=== PATIENT | female | born 1945 | race Caucasian/White ===

== ENCOUNTER 2024-05-25 08:12 | Inpatient (IN) | payer MEDICARE, OTHER ==
[2024-05-25] VITALS (8 sets, daily range): BP systolic 103–135; BP diastolic 50–89; TEMP 97.2–98.2; O2SAT 92–99
[~2024-05-25] VITALS: Ht 175.3 cm; Wt 108.1 kg
[2024-05-25] MEDS: ALBUTEROL FS 2.5 MG/3 ML VIAL.NEB CONTNEB ONE (08:59)
[2024-05-25] MEDS: IPRATROPIUM NEB FS 0.5 MG/2.5 ML AMPUL.NEB NEB ONE (08:59)
[2024-05-25] MEDS: IV NS 0.9% 1,000 ML BAG IV ONE (09:00)
[2024-05-25 09:04] LABS: BASOPHILS % (AUTO) 0.3 % (0.0-2.0); EOSINOPHILS # (AUTO) 0.1 K/uL (0.0-0.7); EOSINOPHILS % (AUTO) 0.7 % (0.0-6.0); HEMATOCRIT 34 % (33-45); HEMOGLOBIN 11.3 g/dL (11.5-14.8); LYMPHOCYTES # (AUTO) 0.9 K/uL (0.8-4.8); LYMPHOCYTES % (AUTO) 8.7 % (20.0-44.0); MEAN CORPUSCULAR HEMOGLOBIN 32 PG (26.0-33.0); MEAN CORPUSCULAR HGB CONC 34 g/dl (31.0-36.0); MEAN CORPUSCULAR VOLUME 94 fL (82-100); MONOCYTES # (AUTO) 0.5 K/uL (0.1-1.30); NEUTROPHILS # (AUTO) 8.6 K/uL (1.8-8.9); NEUTROPHILS % (AUTO) 85.3 % (43.0-81.0); PLATELET COUNT (AUTO) 196 K/uL (150-450); RED BLOOD CELL COUNT(AUTO) 3.59 MIL/uL (4.0-5.2); RED CELL DISTRIBUTION WIDTH 14.1 % (11.5-15.0); WHITE BLOOD COUNT (AUTO) 10.1 K/uL (4.3-11.0)
[2024-05-25] MEDS ORDERED: IPRATROPIUM NEB FS 0.5 MG/2.5 ML AMPUL.NEB ONE (09:04)
[2024-05-25] MEDS ORDERED: ALBUTEROL FS 2.5 MG/3 ML VIAL.NEB ONE (09:04)
[2024-05-25 09:08] LABS: CALCIUM, SERUM 9.3 mg/dL (8.5-10.1); POTASSIUM 4.8 mmol/L (3.5-5.1)
[2024-05-25 09:14] LABS: ALBUMIN 3.2 g/dL (3.4-5.0); BILIRUBIN,DIRECT 0.1 mg/dL (0.0-0.2); BILIRUBIN,TOTAL 0.5 mg/dL (0.2-1.0)
[2024-05-25 09:17] LABS: LACTIC ACID 1.1 mmol/L (0.4-2.0)
[2024-05-25 09:21] LABS: INR 1.01 (0.91-1.10); PARTIAL THROMBOPLASTIN TIME 25.4 SEC (24.3-34.3); PROTHROMBIN TIME 10.7 SECS (9.2-11.1)
[2024-05-25] MEDS: CEFEPIME 1 GM in IV D5W 50 ML IV ONE (09:25)
[2024-05-25 09:34] LABS: ABG BASE EXCESS -1.8 mmol/L (-2.0-3.0); ABG OXYGEN SATURATION 95.2 % (94.0-98.0); ABG PCO2 47.8 mmHg (32.0-45.0); ABG PH 7.327 (7.350-7.450); ABG PO2 86.6 mmHg (83.0-108.0); COHb 0.3 % (0.5-1.5); MetHb 0.3 % (0.0-1.5); O2Hb 94.6 % (94.0-97.0); SITE, ABG LEFT RADIAL
[2024-05-25] MEDS ORDERED: ASCO500T10 PO (10:15)
[2024-05-25] MEDS ORDERED: ZINC220C6 PO (10:15)
[2024-05-25] MEDS ORDERED: LORA10TA68 PO (10:15)
[2024-05-25] MEDS ORDERED: EYEL1KIT TP (10:15)
[2024-05-25] MEDS ORDERED: TOBR5DRO13 EACHEYE (10:15)
[2024-05-25] MEDS ORDERED: AMIN30LI2 PO (10:15)
[2024-05-25] MEDS ORDERED: DIAZ5TAB4 PO (10:15)
[2024-05-25] MEDS ORDERED: PIOG30TA10 PO (10:15)
[2024-05-25] MEDS ORDERED: TIOT18CA3 IH (10:15)
[2024-05-25] MEDS ORDERED: SITA50TA PO (10:15)
[2024-05-25] MEDS ORDERED: MULT-213 PO (10:15)
[2024-05-25] MEDS ORDERED: LEVE500T20 PO (10:15)
[2024-05-25] MEDS: VANCOMYCIN 1 GM in IV D5W 250 ML IV ONE (10:15)
[2024-05-25] MEDS ORDERED: ASPI-1420 PO (10:15)
[2024-05-25] MEDS ORDERED: MELA3TAB41 PO (10:15)
[2024-05-25] MEDS ORDERED: IPRA3AMP23 IH (10:15)
[2024-05-25] MEDS ORDERED: MAG HYDROX/AL HYDROX/SIMETH 30 ML UDC PO PRN (10:30)
[2024-05-25] MEDS ORDERED: ACETAMINOPHEN 325 MG TABLET PO PRN (10:30)
[2024-05-25] MEDS ORDERED: ZOLPIDEM TARTRATE 5 MG TABLET PO PRN (10:30)
[2024-05-25] MEDS ORDERED: MAGNESIUM HYDROXIDE 30 ML UDC PO PRN (10:30)
[2024-05-25] MEDS ORDERED: ONDANSETRON HCL/PF 4 MG/2 ML VIAL IVP PRN (10:30)
[2024-05-25 10:33] LABS: APPEARANCE,URINE CLEAR (CLEAR); BILIRUBIN,URINE 1+ (NEGATIVE); BLOOD, URINE 2+ Ery/uL (NEGATIVE); COLOR,URINE YELLOW (YELLOW); KETONES,URINE 1+ mg/dL (NEGATIVE); LEUKOCYTE ESTERASE ,URINE NEGATIVE (NEGATIVE); NITRITE, URINE NEGATIVE (NEGATIVE); PH,URINE 5.5 (5.0-8.0); PROTEIN,URINE 1+ mg/dl (NEGATIVE); UGLUCOSE NEGATIVE (NEGATIVE); UROBILINOGEN,URINE 0.2 EU/dL (0.2)
[2024-05-25] MEDS ORDERED: DEXTROSE 50%-WATER 50 ML DISP.SYRIN IV PRN (11:00)
[2024-05-25 11:12] LABS: ADD URINE CULTURE YES; BACTERIA,URINE 2+ /HPF (None Seen); SQUAMOUS EPITHELIAL CELL,UR Few /HPF (None Seen); URINE AMORPHOUS URATE Few /HPF (None Seen); WBC,URINE 0-2 /HPF (0-3)
[2024-05-25] MEDS: BLOOD SUGAR DIAGNOSTIC 1 EACH STRIP IN SCH (13:24)
[2024-05-25] MEDS: IPRATROPIUM NEB FS 0.5 MG/2.5 ML AMPUL.NEB NEB SCH (13:28)
[2024-05-25] MEDS: ALBUTEROL FS 2.5 MG/3 ML VIAL.NEB NEB SCH (13:28)
[2024-05-25] MEDS: LEVETIRACETAM (250 MG) 250 MG TABLET PO SCH (17:00)
[2024-05-25] MEDS: IV NS 0.9% 1,000 ML IV PRN (17:48)
[2024-05-25] MEDS: LEVETIRACETAM (500MG) 250 MG in IV NS 0.9% 100 ML IV SCH (18:40)
[2024-05-25] MEDS: IV D5/0.45 NACL 1,000 ML IV PRN (21:12)
[2024-05-25] MEDS: HEPARIN SODIUM, PORCINE 5000 UNITS/1 ML VIAL SQ SCH (22:51)
[2024-05-26] VITALS (8 sets, daily range): BP systolic 125; BP diastolic 74; TEMP 98; O2SAT 93–99
[2024-05-26 07:03] LABS: BASOPHILS % (AUTO) 0.5 % (0.0-2.0); EOSINOPHILS # (AUTO) 0.4 K/uL (0.0-0.7); EOSINOPHILS % (AUTO) 7.1 % (0.0-6.0); HEMATOCRIT 31 % (33-45); HEMOGLOBIN 10.1 g/dL (11.5-14.8); LYMPHOCYTES % (AUTO) 16.6 % (20.0-44.0); MEAN CORPUSCULAR HEMOGLOBIN 32 PG (26.0-33.0); MEAN CORPUSCULAR HGB CONC 33 g/dl (31.0-36.0); MEAN CORPUSCULAR VOLUME 96 fL (82-100); MONOCYTES # (AUTO) 0.5 K/uL (0.1-1.30); MONOCYTES % (AUTO) 9.4 % (2.0-12.0); NEUTROPHILS # (AUTO) 3.8 K/uL (1.8-8.9); NEUTROPHILS % (AUTO) 66.4 % (43.0-81.0); PLATELET COUNT (AUTO) 164 K/uL (150-450); RED CELL DISTRIBUTION WIDTH 14.1 % (11.5-15.0); WHITE BLOOD COUNT (AUTO) 5.8 K/uL (4.3-11.0)
[2024-05-26 07:15] LABS: CALCIUM, SERUM 8.5 mg/dL (8.5-10.1); CREATININE 1.2 mg/dL (0.6-1.3); MAGNESIUM 1.9 mg/dL (1.8-2.4); POTASSIUM 3.9 mmol/L (3.5-5.1)
[2024-05-26] MEDS: MULTIVIT W/MINERALS 1 TAB TABLET PO SCH (09:00)
[2024-05-26] MEDS: LINAGLIPTIN 5 MG TABLET PO SCH (09:00)
[2024-05-26] MEDS: PROSOURCE / PROSTAT (PYXIS) 30 ML UDC PO SCH (09:00)
[2024-05-26] MEDS: ASCORBIC ACID 500 MG TABLET PO SCH (09:00)
[2024-05-26] MEDS: ASPIRIN EC 81 MG TABLET.DR PO SCH (09:00)
[2024-05-26] MEDS: VANCOMYCIN 750 MG in IV D5W 250 ML IV SCH (09:59)
[2024-05-26] MEDS: CEFEPIME 1 GM in IV D5W 50 ML IV SCH (09:59)
[2024-05-26] MEDS: Z GUARD REMEDY 4 OZ OINT TP PRN (17:02)
[2024-05-26] MEDS: CLOTRIMAZOLE 1% 15 GM TUBE TP SCH (18:17)
[2024-05-26] MEDS: CEFEPIME 2 GM in IV D5W 100 ML IV SCH (20:58)
[2024-05-26 21:59] LABS: CREATININE, URINE 155.1 MG/DL (30.0-125.0); URINE TOTAL PROTEIN 67.5 mg/dL (0-11.9)
[2024-05-27] VITALS (11 sets, daily range): BP systolic 128–151; BP diastolic 62–84; TEMP 97.9; O2SAT 92–99
[2024-05-27 07:06] LABS: BASOPHILS # (AUTO) 0.1 K/uL (0.0-0.2); EOSINOPHILS # (AUTO) 0.5 K/uL (0.0-0.7); EOSINOPHILS % (AUTO) 7.4 % (0.0-6.0); HEMATOCRIT 33 % (33-45); HEMOGLOBIN 10.7 g/dL (11.5-14.8); LYMPHOCYTES # (AUTO) 1.5 K/uL (0.8-4.8); LYMPHOCYTES % (AUTO) 24.7 % (20.0-44.0); MEAN CORPUSCULAR HEMOGLOBIN 32 PG (26.0-33.0); MEAN CORPUSCULAR HGB CONC 32 g/dl (31.0-36.0); MEAN CORPUSCULAR VOLUME 100 fL (82-100); MONOCYTES # (AUTO) 0.8 K/uL (0.1-1.30); MONOCYTES % (AUTO) 13.5 % (2.0-12.0); NEUTROPHILS # (AUTO) 3.3 K/uL (1.8-8.9); NEUTROPHILS % (AUTO) 53.4 % (43.0-81.0); PLATELET COUNT (AUTO) 174 K/uL (150-450); RED BLOOD CELL COUNT(AUTO) 3.33 MIL/uL (4.0-5.2); RED CELL DISTRIBUTION WIDTH 14.4 % (11.5-15.0); WHITE BLOOD COUNT (AUTO) 6.3 K/uL (4.3-11.0)
[2024-05-27 07:28] LABS: ALBUMIN 2.4 g/dL (3.4-5.0); BILIRUBIN,TOTAL 0.2 mg/dL (0.2-1.0); CALCIUM, SERUM 8.4 mg/dL (8.5-10.1); CREATININE 1.1 mg/dL (0.6-1.3); MAGNESIUM 1.8 mg/dL (1.8-2.4); POTASSIUM 4.1 mmol/L (3.5-5.1); TOTAL PROTEIN, SERUM 6.5 g/dL (6.4-8.2)
[2024-05-27] MEDS: VANCOMYCIN HCL 1.25 GM in IV D5W 250 ML IV SCH (10:03)
[2024-05-27] MEDS: LEVETIRACETAM (250 MG) 250 MG TABLET PO SCH (18:12)
[2024-05-28] VITALS (10 sets, daily range): BP systolic 146–172; BP diastolic 71–84; TEMP 97.9–98.4; O2SAT 91–99
[2024-05-28 13:14] LABS: CALCIUM, SERUM 9.1 mg/dL (8.5-10.1); CREATININE 1.1 mg/dL (0.6-1.3); POTASSIUM 4.1 mmol/L (3.5-5.1)
[2024-05-28] MEDS: INSULIN REGULAR, HUMAN 100 UNIT/ML 3 ML VIAL SQ PRN (21:53)
[2024-05-29] VITALS (11 sets, daily range): BP systolic 114–139; BP diastolic 52–63; TEMP 97.3–98.2; O2SAT 94–98
[2024-05-29 04:12] LABS: PTH, INTACT 21 pg/mL (15-65)
[2024-05-29 08:03] LABS: CALCIUM, SERUM 8.7 mg/dL (8.5-10.1); CREATININE 1.1 mg/dL (0.6-1.3); POTASSIUM 4.4 mmol/L (3.5-5.1)
[2024-05-29 15:12] LABS: CALCIUM, SERUM 8.9 mg/dL (8.5-10.1); CREATININE 1.1 mg/dL (0.6-1.3); POTASSIUM 4.4 mmol/L (3.5-5.1)
[2024-05-30 01:08] VITALS: O2SAT 94
[2024-05-30 01:23] VITALS: O2SAT 98
[2024-05-30 07:20] VITALS: O2SAT 95
[2024-05-30 07:36] VITALS: O2SAT 98
[2024-05-30 07:49] LABS: CALCIUM, SERUM 8.9 mg/dL (8.5-10.1); CREATININE 1.2 mg/dL (0.6-1.3); POTASSIUM 4.1 mmol/L (3.5-5.1)
[2024-05-30] MEDS ORDERED: AMOX-430 PO (08:19)
[2024-05-30] MEDS ORDERED: CLOT15CR35 TP (08:19)
[2024-05-30] MEDS ORDERED: IPRA0.2S9 NEB (08:19)
[2024-06-02 06:11] LABS: *SPE A/G RATIO 0.8 (0.7-1.7); *SPE ALBUMIN 2.6 g/dL (2.9-4.4); *SPE ALPHA-1-GLOBULIN 0.2 g/dL (0.0-0.4); *SPE ALPHA-2-GLOBULIN 0.9 g/dL (0.4-1.0); *SPE GLOBULIN, TOTAL 3.4 g/dL (2.2-3.9); *SPE M-SPIKE Not Observed g/dL (Not Observed); *SPEGAMMA GLOBULIN 1.3 g/dL (0.4-1.8)
== END 2024-05-30 13:10 | DRG 177 ==
LOC: ER 08:25 → TELE 11:42 → MED 13:26
PROVIDERS: ADMIT Nurse Practitioner Acute Care; ATTEND Nurse Practitioner Acute Care
DX: J15.69 Pneumonia due to other Gram-negative bacteria (principal); G92.8 Other toxic encephalopathy; J96.21 Acute and chronic respiratory failure with hypoxia; N17.0 Acute kidney failure with tubular necrosis; L03.115 Cellulitis of right lower limb; E44.0 Moderate protein-calorie malnutrition; L03.116 Cellulitis of left lower limb; J98.11 Atelectasis; G40.909 Epilepsy, unspecified, not intractable, without status epilepticus; E11.22 Type 2 diabetes mellitus with diabetic chronic kidney disease; N18.9 Chronic kidney disease, unspecified; Z90.2 Acquired absence of lung [part of]; Z85.118 Personal history of other malignant neoplasm of bronchus and lung; Z99.81 Dependence on supplemental oxygen; Z88.1 Allergy status to other antibiotic agents; I12.9 Hypertensive chronic kidney disease with stage 1 through stage 4 chronic kidney disease, or unspecified chronic kidney disease; Z68.35 Body mass index [BMI] 35.0-35.9, adult; E66.01 Morbid (severe) obesity due to excess calories; D64.9 Anemia, unspecified; E88.09 Other disorders of plasma-protein metabolism, not elsewhere classified; E86.9 Volume depletion, unspecified; M89.8X9 Other specified disorders of bone, unspecified site; F29 Unspecified psychosis not due to a substance or known physiological condition
CPT/HCPCS: 36415; 36600; 70450-TC; 71045-TC; 80048-TC; 80053-TC; 80076-TC; 80177; 80202-TC; 81001; 82550-TC; 82570-TC; 82803-TC; 82962-TC; 83605-TC; 83735-TC; 83970; 84100-TC; 84155; 84165; 84300-TC; 85025-TC; 85730-TC; 87040-TC; 87081-TC; 87086-TC; 92526; 92611-TC; 94761-TC; 94799-TC; 97110-TC; 97116-TC; 97530-TC; A4223; G0378; J0692; J1644; J1815; J1953; J3370; J3371; J3490; J7030; J7042; J7050; J7060